=== PATIENT | female | born 1955 | race African-American/Black ===

== ENCOUNTER 2021-12-15 11:54 | Inpatient (IN) | payer OTHER ==
[~2021-12-15] VITALS: Ht 157.5 cm; Wt 64.6 kg
[2021-12-15] MEDS: IPRATROPIUM/ALBUTEROL 0.5-3(2.5)MG/3ML NEB HHN SCH (01:24)
[2021-12-15] MEDS ORDERED: IPRATROPIUM BROMIDE (0.02%) 0.5MG/2.5ML NEB HHN STA (12:04)
[2021-12-15] MEDS ORDERED: METHYLPREDNISOLONE SOD SUCC 125 MG/2 ML VIAL IV STA (12:04)
[2021-12-15] MEDS ORDERED: MAGNESIUM 2 G PREMIX 50 ML IV ONE (12:15)
[2021-12-15] MEDS: ALBUTEROL (0.083%) 2.5MG/3ML NEB HHN SCH ×3 (12:34→13:41)
[2021-12-15 12:38] LABS: HEMATOCRIT. 40.2 % (36.0-48.0); HEMOGLOBIN. 13.1 g/dL (12.0-16.0); MEAN CORPUSCULAR HEMOGLOBIN 30.5 pg (28.0-32.0); MEAN CORPUSCULAR VOLUME 93.6 fL (81.0-99.0); MEAN PLATELET VOLUME 8.2 fl (7.4-10.4); PLATELET 307 x1000/uL (130-400); RED BLOOD CELL COUNT 4.29 mill/uL (4.2-5.4); RED CELL DISTRIBUTION WIDTH 14.2 % (11.6-14.6)
[2021-12-15 12:48] LABS: CHLORIDE 111 mEq/L (98-107)
[2021-12-15 13:01] LABS: ETHANOL BLOOD < 10 mg/dL
[2021-12-15 13:09] LABS: PLATELET ESTIMATE NORMAL
[2021-12-15 13:14] LABS: BG BASE EXCESS -8.4 mmol/L (-2.0-2.0); BG CARBOXYHEMOGLOBIN 5.4 % (0.5-1.5); BG DEOXYHEMOGLOBIN 6.3 % (0.0-5.0); BG FRACTION INSPIRED OXYGEN 100; BG HCO3 ACT 18.1 mmol/L (22.0-26.0); BG METHEMOGLOBIN 0.3 % (0.0-1.5); BG OXYGEN SATURATION 93.3 % (92.0-98.5); BG PCO2 40.8 mmHg (35.0-45.0); BG PH 7.265 (7.350-7.450); BG PO2 72.1 mmHg (75.0-100.0); BG SAMPLE SITE RIGHT RADIAL; BG TOTAL HEMOGLOBIN 13.7 g/dL (12.0-18.0); BG TOTAL RESPIRATORY RATE 36 b/min; BG VENT MODE MASK - BIPAP
[2021-12-15 17:01] LABS: *AMPHETAMINES SCREEN URINE NEGATIVE (NEGATIVE); *BARBITURATES SCREEN URINE NEGATIVE (NEGATIVE); *BENZODIAZEPINES SCREEN URINE NEGATIVE (NEGATIVE); *COCAINE SCREEN URINE NEGATIVE (NEGATIVE); CANNABINOID URINE SCREEN NEGATIVE (NEGATIVE); METHADONE URINE SCREEN NEGATIVE (NEGATIVE); OPIATES URINE SCREEN PRESUMTIVE POSITIVE (NEGATIVE); PHENCYCLIDINE URINE SCREEN NEGATIVE (NEGATIVE)
[2021-12-15] MEDS ORDERED: IPRATROPIUM/ALBUTEROL 0.5-3(2.5)MG/3ML NEB HHN PRN (21:00)
[2021-12-15] MEDS ORDERED: ONDANSETRON HCL 4MG/2ML INJ IV PRN (21:00)
[2021-12-15] MEDS ORDERED: CLONIDINE 0.1MG TABLET PO PRN (21:00)
[2021-12-15] MEDS ORDERED: MAGNESIUM/ALUMINUM HYDROXIDE/SIMETHICONE 30ML UDC PO PRN (21:00)
[2021-12-15] MEDS ORDERED: ACETAMINOPHEN 325MG TABLET PO PRN (21:00)
[2021-12-15] MEDS ORDERED: DOCUSATE SODIUM 100MG CAPSULE PO PRN (21:00)
[2021-12-15] MEDS ORDERED: NALOXONE HCL 0.4MG/ML VIAL IV PRN (21:30)
[2021-12-15] MEDS: ACETAMINOPHEN 325MG TABLET PO PRN (21:36)
[2021-12-15] MEDS ORDERED: LEVOFLOXACIN 500MG PREMIX 100 ML IV NR (22:30)
[2021-12-16] VITALS (11 sets, daily range): BP systolic 100–153; BP diastolic 29–76
[2021-12-16 08:28] LABS: BG BASE EXCESS -4.8 mmol/L (-2.0-2.0); BG CARBOXYHEMOGLOBIN 1.3 % (0.5-1.5); BG DEOXYHEMOGLOBIN 5.9 % (0.0-5.0); BG FRACTION INSPIRED OXYGEN 100; BG HCO3 ACT 20.8 mmol/L (22.0-26.0); BG METHEMOGLOBIN 0.3 % (0.0-1.5); BG OXYHEMOGLOBIN 92.5 % (94.0-97.0); BG PCO2 40.6 mmHg (35.0-45.0); BG PH 7.328 (7.350-7.450); BG PO2 70.7 mmHg (75.0-100.0); BG SAMPLE SITE RIGHT RADIAL; BG TOTAL HEMOGLOBIN 13.7 g/dL (12.0-18.0); BG VENT MODE MASK - BIPAP
[2021-12-16] MEDS ORDERED: METHYLPREDNISOLONE SOD SUCC 125 MG/2 ML VIAL IV SCH (09:00)
[2021-12-16 09:27] LABS: CLARITY URINE CLOUDY (CLEAR); COLOR URINE DARK YELLOW (YELLOW); KETONES URINE TRACE (NEGATIVE); LEUKOCYTE ESTERASE URINE 2+ (NEGATIVE); NITRITE URINE NEGATIVE (NEGATIVE); OCCULT BLOOD URINE NEGATIVE (NEGATIVE); PH URINE 5.5 (4.5-8.0); PROTEIN URINE 1+ (NEGATIVE); SPECIFIC GRAVITY URINE 1.022 (1.005-1.030)
[2021-12-16] MEDS: IPRATROPIUM/ALBUTEROL 0.5-3(2.5)MG/3ML NEB HHN SCH ×3 (09:35→20:17)
[2021-12-16] MEDS: PANTOPRAZOLE SODIUM 40 MG/VIAL IV SCH (09:51)
[2021-12-16] MEDS: HYDROCODONE/ACETAMINOPHEN 5/325MG TABLET PO PRN (09:52)
[2021-12-16] MEDS: GUAIFENESIN 200MG/10ML SUGAR FREE UDC PO PRN (09:52)
[2021-12-16] MEDS: GUAIFENESIN 600MG ER TABLET PO SCH ×2 (09:52→19:59)
[2021-12-16] MEDS: ENOXAPARIN 40MG/0.4ML SYR SUBCUT SCH (09:53)
[2021-12-16 10:37] LABS: BG BASE EXCESS -4.7 mmol/L (-2.0-2.0); BG CARBOXYHEMOGLOBIN 1.6 % (0.5-1.5); BG DEOXYHEMOGLOBIN 6.8 % (0.0-5.0); BG FRACTION INSPIRED OXYGEN 100; BG HCO3 ACT 21.6 mmol/L (22.0-26.0); BG METHEMOGLOBIN 0.3 % (0.0-1.5); BG OXYGEN SATURATION 93.1 % (92.0-98.5); BG OXYHEMOGLOBIN 91.3 % (94.0-97.0); BG PCO2 44.2 mmHg (35.0-45.0); BG PH 7.306 (7.350-7.450); BG PO2 68.5 mmHg (75.0-100.0); BG SAMPLE SITE LEFT RADIAL; BG TOTAL HEMOGLOBIN 13.9 g/dL (12.0-18.0); BG VENT MODE MASK - BIPAP
[2021-12-16] MEDS: METHYLPREDNISOLONE SOD SUCC 125 MG/2 ML VIAL IV SCH ×3 (12:00→23:08)
[2021-12-16] MEDS: BUDESONIDE 0.5MG/2ML NEB HHN SCH ×2 (12:27→20:17)
[2021-12-16 12:30] LABS: HEMATOCRIT. 38.9 % (36.0-48.0); HEMOGLOBIN. 12.9 g/dL (12.0-16.0); MEAN CORPUSCULAR HEMOGLOBIN 30.8 pg (28.0-32.0); MEAN CORPUSCULAR VOLUME 92.6 fL (81.0-99.0); MEAN PLATELET VOLUME 8.3 fl (7.4-10.4); PLATELET 307 x1000/uL (130-400); RED CELL DISTRIBUTION WIDTH 14.3 % (11.6-14.6)
[2021-12-16 12:41] LABS: CHLORIDE 115 mEq/L (98-107)
[2021-12-16] MEDS: ALPRAZOLAM 0.5 MG TABLET PO PRN (12:47)
[2021-12-16 12:48] LABS: PHOSPHORUS 1.9 mg/dL (2.5-4.9)
[2021-12-16 17:50] LABS: NUCLEATED RED BLOOD CELLS 1 /100 WBC; PLATELET ESTIMATE NORMAL
[2021-12-16] MEDS: MORPHINE SULFATE 2 MG/ML CPJ (NOT FOR IM USE) IV PRN (19:44)
[2021-12-16] MEDS: LEVOFLOXACIN 250MG PREMIX 50 ML IV SCH (23:08)
[2021-12-17] VITALS (11 sets, daily range): BP systolic 126–174; BP diastolic 59–96
[2021-12-17] MEDS: IPRATROPIUM/ALBUTEROL 0.5-3(2.5)MG/3ML NEB HHN SCH ×4 (02:01→20:13)
[2021-12-17] MEDS: MORPHINE SULFATE 2 MG/ML CPJ (NOT FOR IM USE) IV PRN (02:04)
[2021-12-17] MEDS: METHYLPREDNISOLONE SOD SUCC 125 MG/2 ML VIAL IV SCH ×4 (05:09→23:15)
[2021-12-17] MEDS: GUAIFENESIN 600MG ER TABLET PO SCH ×2 (08:05→20:44)
[2021-12-17] MEDS: ALPRAZOLAM 0.5 MG TABLET PO PRN ×2 (08:05→20:44)
[2021-12-17] MEDS: ENOXAPARIN 40MG/0.4ML SYR SUBCUT SCH (08:05)
[2021-12-17] MEDS: PANTOPRAZOLE SODIUM 40 MG/VIAL IV SCH (08:05)
[2021-12-17 09:12] LABS: BG BASE EXCESS -1.3 mmol/L (-2.0-2.0); BG CARBOXYHEMOGLOBIN 1.3 % (0.5-1.5); BG DEOXYHEMOGLOBIN 4.7 % (0.0-5.0); BG FRACTION INSPIRED OXYGEN 100; BG HCO3 ACT 23.4 mmol/L (22.0-26.0); BG METHEMOGLOBIN 0.3 % (0.0-1.5); BG OXYGEN SATURATION 95.2 % (92.0-98.5); BG OXYHEMOGLOBIN 93.7 % (94.0-97.0); BG PCO2 39.5 mmHg (35.0-45.0); BG PH 7.391 (7.350-7.450); BG PO2 75.5 mmHg (75.0-100.0); BG TOTAL HEMOGLOBIN 13.4 g/dL (12.0-18.0); BG VENT MODE MASK - BIPAP
[2021-12-17] MEDS: BUDESONIDE 0.5MG/2ML NEB HHN SCH ×2 (09:12→20:13)
[2021-12-17] MEDS: HYDROCODONE/ACETAMINOPHEN 5/325MG TABLET PO PRN ×2 (09:56→20:43)
[2021-12-17] MEDS: LEVOFLOXACIN 250MG PREMIX 50 ML IV SCH (23:15)
[2021-12-18] VITALS (38 sets, daily range): BP systolic 89–211; BP diastolic 49–114
[2021-12-18] MEDS: IPRATROPIUM/ALBUTEROL 0.5-3(2.5)MG/3ML NEB HHN SCH ×3 (02:10→20:30)
[2021-12-18] MEDS: MORPHINE SULFATE 2 MG/ML CPJ (NOT FOR IM USE) IV PRN (02:18)
[2021-12-18] MEDS: METHYLPREDNISOLONE SOD SUCC 125 MG/2 ML VIAL IV SCH ×3 (05:12→18:49)
[2021-12-18] MEDS: HYDROCODONE/ACETAMINOPHEN 5/325MG TABLET PO PRN (05:12)
[2021-12-18] MEDS: ALPRAZOLAM 0.5 MG TABLET PO PRN (05:13)
[2021-12-18] MEDS: ENOXAPARIN 40MG/0.4ML SYR SUBCUT SCH (08:24)
[2021-12-18] MEDS: GUAIFENESIN 600MG ER TABLET PO SCH ×2 (08:24→21:30)
[2021-12-18] MEDS: PANTOPRAZOLE SODIUM 40 MG/VIAL IV SCH (08:24)
[2021-12-18] MEDS: BUDESONIDE 0.5MG/2ML NEB HHN SCH ×3 (08:46→20:30)
[2021-12-18 11:26] LABS: BG BASE EXCESS -0.7 mmol/L (-2.0-2.0); BG CARBOXYHEMOGLOBIN 1.4 % (0.5-1.5); BG DEOXYHEMOGLOBIN 7.5 % (0.0-5.0); BG FRACTION INSPIRED OXYGEN 70; BG HCO3 ACT 23.1 mmol/L (22.0-26.0); BG METHEMOGLOBIN 0.3 % (0.0-1.5); BG OXYGEN SATURATION 92.4 % (92.0-98.5); BG OXYHEMOGLOBIN 90.8 % (94.0-97.0); BG PCO2 35.7 mmHg (35.0-45.0); BG PH 7.429 (7.350-7.450); BG PO2 60.6 mmHg (75.0-100.0); BG SAMPLE SITE RIGHT RADIAL; BG TOTAL HEMOGLOBIN 14.2 g/dL (12.0-18.0); BG VENT MODE MASK - BIPAP
[2021-12-18 12:12] LABS: HEMATOCRIT 43.7 % (36.0-48.0); HEMOGLOBIN 14.1 g/dL (12.0-16.0); MEAN CORPUSCULAR HEMOGLOBIN 30.3 pg (28.0-32.0); MEAN CORPUSCULAR VOLUME 93.8 fL (81.0-99.0); PLATELET 314 x1000/uL (130-400); RED BLOOD CELL COUNT 4.66 mill/uL (4.2-5.4); RED CELL DISTRIBUTION WIDTH 14.2 % (11.6-14.6)
[2021-12-18 12:30] LABS: CHLORIDE 115 mEq/L (98-107)
[2021-12-18 13:58] LABS: BG CARBOXYHEMOGLOBIN 1.4 % (0.5-1.5); BG DEOXYHEMOGLOBIN 2.1 % (0.0-5.0); BG FRACTION INSPIRED OXYGEN 100; BG HCO3 ACT 26.6 mmol/L (22.0-26.0); BG METHEMOGLOBIN 0.1 % (0.0-1.5); BG OXYGEN SATURATION 97.9 % (92.0-98.5); BG OXYHEMOGLOBIN 96.4 % (94.0-97.0); BG PCO2 67.5 mmHg (35.0-45.0); BG PH 7.213 (7.350-7.450); BG PO2 116.9 mmHg (75.0-100.0); BG SAMPLE SITE RIGHT RADIAL; BG TOTAL HEMOGLOBIN 15.3 g/dL (12.0-18.0); BG VENT MODE VENT - AC
[2021-12-18] MEDS: PROPOFOL 10MG/ML 100ML 100 ML IV PRN (16:27)
[2021-12-18] MEDS: LEVOFLOXACIN 500MG PREMIX 100 ML IV SCH (18:48)
[2021-12-18] MEDS: GUAIFENESIN 200MG/10ML SUGAR FREE UDC PO PRN ×2 (21:28→21:30)
[2021-12-18] MEDS: FENTANYL 2500MCG/250ML PMX 250 ML IV NR (23:29)
[2021-12-19] VITALS (66 sets, daily range): BP systolic 106–144; BP diastolic 52–82
[2021-12-19] MEDS: PROPOFOL 10MG/ML 100ML 100 ML IV PRN ×4 (00:28→19:59)
[2021-12-19] MEDS: METHYLPREDNISOLONE SOD SUCC 125 MG/2 ML VIAL IV SCH ×4 (00:34→18:22)
[2021-12-19] MEDS: IPRATROPIUM/ALBUTEROL 0.5-3(2.5)MG/3ML NEB HHN SCH ×4 (01:17→20:24)
[2021-12-19] MEDS: BUDESONIDE 0.5MG/2ML NEB HHN SCH (07:45)
[2021-12-19 08:11] LABS: BG BASE EXCESS -1.6 mmol/L (-2.0-2.0); BG DEOXYHEMOGLOBIN 0.7 % (0.0-5.0); BG HCO3 ACT 23.9 mmol/L (22.0-26.0); BG METHEMOGLOBIN 0.3 % (0.0-1.5); BG OXYGEN SATURATION 99.3 % (92.0-98.5); BG PCO2 43.4 mmHg (35.0-45.0); BG PH 7.359 (7.350-7.450); BG PO2 185.4 mmHg (75.0-100.0); BG SAMPLE SITE RIGHT RADIAL; BG TOTAL HEMOGLOBIN 14.2 g/dL (12.0-18.0); BG VENT MODE VENT - AC
[2021-12-19] MEDS: GUAIFENESIN 600MG ER TABLET PO SCH ×2 (09:26→21:30)
[2021-12-19] MEDS: PANTOPRAZOLE SODIUM 40 MG/VIAL IV SCH (09:26)
[2021-12-19] MEDS: ENOXAPARIN 40MG/0.4ML SYR SUBCUT SCH (09:27)
[2021-12-19] MEDS: LEVOFLOXACIN 500MG PREMIX 100 ML IV SCH (17:56)
[2021-12-19] MEDS ORDERED: FENTANYL 2500MCG/250ML PMX 250 ML IV PRN (19:30)
[2021-12-19] MEDS: FENTANYL 2500MCG/250ML PMX 250 ML IV NR (19:50)
[2021-12-19] MEDS ORDERED: PROPOFOL 10MG/ML 100ML 100 ML IV PRN (20:00)
[2021-12-19] MEDS: GUAIFENESIN 200MG/10ML SUGAR FREE UDC PO PRN (21:39)
[2021-12-20] VITALS (89 sets, daily range): BP systolic 115–164; BP diastolic 58–97
[2021-12-20] MEDS: IPRATROPIUM/ALBUTEROL 0.5-3(2.5)MG/3ML NEB HHN SCH ×4 (01:28→19:59)
[2021-12-20] MEDS: METHYLPREDNISOLONE SOD SUCC 125 MG/2 ML VIAL IV SCH ×4 (06:32→17:14)
[2021-12-20] MEDS: PROPOFOL 10MG/ML 100ML 100 ML IV PRN (06:51)
[2021-12-20 07:58] LABS: BG BASE EXCESS 4.8 mmol/L (-2.0-2.0); BG FRACTION INSPIRED OXYGEN 50; BG HCO3 ACT 29.5 mmol/L (22.0-26.0); BG PCO2 43.7 mmHg (35.0-45.0); BG PH 7.447 (7.350-7.450); BG PO2 83.3 mmHg (75.0-100.0); BG SAMPLE SITE RIGHT RADIAL; BG VENT MODE VENT - AC
[2021-12-20] MEDS: ENOXAPARIN 40MG/0.4ML SYR SUBCUT SCH (09:20)
[2021-12-20] MEDS: PANTOPRAZOLE SODIUM 40 MG/VIAL IV SCH (09:20)
[2021-12-20] MEDS: GUAIFENESIN 600MG ER TABLET PO SCH ×2 (09:20→21:32)
[2021-12-20] MEDS ORDERED: DOPAMINE 800MG PREMIX (DOUBLE) 250 ML IV PRN (12:45)
[2021-12-20] MEDS ORDERED: MIDAZOLAM 100MG/100ML PMX 100 ML IV PRN (12:45)
[2021-12-20] MEDS ORDERED: MIDAZOLAM HCL 100 MG in SODIUM CHLORIDE 0.9% 100 ML IV PRN (13:00)
[2021-12-20] MEDS ORDERED: ATROPINE SULFATE 1MG/ML VIAL IV NR (13:30)
[2021-12-20] MEDS ORDERED: FENTANYL 2500MCG/250ML PMX 250 ML IV PRN (14:00)
[2021-12-20] MEDS: CHLORDIAZEPOXIDE 25MG CAPSULE PO SCH ×2 (14:32→22:09)
[2021-12-20 16:18] LABS: T4 FREE 1.32 ng/dL (0.76-1.46)
[2021-12-20] MEDS: LEVOFLOXACIN 500MG PREMIX 100 ML IV SCH (17:14)
[2021-12-21] VITALS (66 sets, daily range): BP systolic 110–150; BP diastolic 53–91
[2021-12-21] MEDS: METHYLPREDNISOLONE SOD SUCC 125 MG/2 ML VIAL IV SCH ×3 (00:40→13:22)
[2021-12-21] MEDS: IPRATROPIUM/ALBUTEROL 0.5-3(2.5)MG/3ML NEB HHN SCH ×4 (01:44→19:54)
[2021-12-21] MEDS: CHLORDIAZEPOXIDE 25MG CAPSULE PO SCH ×3 (06:31→21:40)
[2021-12-21 08:07] LABS: BG CARBOXYHEMOGLOBIN 0.6 % (0.5-1.5); BG DEOXYHEMOGLOBIN 5.6 % (0.0-5.0); BG FRACTION INSPIRED OXYGEN 40; BG HCO3 ACT 25.5 mmol/L (22.0-26.0); BG METHEMOGLOBIN 0.3 % (0.0-1.5); BG OXYGEN SATURATION 94.3 % (92.0-98.5); BG OXYHEMOGLOBIN 93.5 % (94.0-97.0); BG PCO2 36.4 mmHg (35.0-45.0); BG PH 7.464 (7.350-7.450); BG SAMPLE SITE RIGHT RADIAL; BG TOTAL HEMOGLOBIN 13.6 g/dL (12.0-18.0); BG VENT MODE VENT - AC
[2021-12-21] MEDS: ENOXAPARIN 40MG/0.4ML SYR SUBCUT SCH (09:01)
[2021-12-21] MEDS: GUAIFENESIN 600MG ER TABLET PO SCH ×2 (09:02→20:43)
[2021-12-21] MEDS: PANTOPRAZOLE SODIUM 40 MG/VIAL IV SCH (09:02)
[2021-12-21 12:54] LABS: HEMATOCRIT. 40.9 % (36.0-48.0); HEMOGLOBIN. 13.1 g/dL (12.0-16.0); MEAN CORPUSCULAR HEMOGLOBIN 30.4 pg (28.0-32.0); MEAN PLATELET VOLUME 8.3 fl (7.4-10.4); PLATELET 216 x1000/uL (130-400); RED CELL DISTRIBUTION WIDTH 14.2 % (11.6-14.6)
[2021-12-21 13:21] LABS: CHLORIDE 112 mEq/L (98-107)
[2021-12-21 13:28] LABS: PHOSPHORUS 2.9 mg/dL (2.5-4.9)
[2021-12-21 15:05] LABS: NUCLEATED RED BLOOD CELLS 1 /100 WBC; PLATELET ESTIMATE NORMAL
[2021-12-21] MEDS: SODIUM CHLORIDE 0.45% 1,000 ML IV SCH (17:49)
[2021-12-21] MEDS: METHYLPREDNISOLONE SOD SUCC 40 MG/ML VIAL IV SCH (17:49)
[2021-12-22] VITALS (82 sets, daily range): BP systolic 100–147; BP diastolic 49–85
[2021-12-22] MEDS: IPRATROPIUM/ALBUTEROL 0.5-3(2.5)MG/3ML NEB HHN SCH ×4 (01:55→20:27)
[2021-12-22] MEDS: CHLORDIAZEPOXIDE 25MG CAPSULE PO SCH ×3 (07:04→21:12)
[2021-12-22] MEDS: METHYLPREDNISOLONE SOD SUCC 40 MG/ML VIAL IV SCH ×2 (07:04→18:25)
[2021-12-22] MEDS: PANTOPRAZOLE SODIUM 40 MG/VIAL IV SCH (08:27)
[2021-12-22] MEDS: ENOXAPARIN 40MG/0.4ML SYR SUBCUT SCH (08:28)
[2021-12-22 08:37] LABS: BG BASE EXCESS 0.6 mmol/L (-2.0-2.0); BG CARBOXYHEMOGLOBIN 0.4 % (0.5-1.5); BG DEOXYHEMOGLOBIN 5.5 % (0.0-5.0); BG FRACTION INSPIRED OXYGEN 40; BG METHEMOGLOBIN 0.7 % (0.0-1.5); BG OXYGEN SATURATION 94.4 % (92.0-98.5); BG OXYHEMOGLOBIN 93.4 % (94.0-97.0); BG PCO2 39.3 mmHg (35.0-45.0); BG PH 7.421 (7.350-7.450); BG PO2 72.4 mmHg (75.0-100.0); BG SAMPLE SITE RIGHT RADIAL; BG TOTAL HEMOGLOBIN 13.8 g/dL (12.0-18.0); BG VENT MODE VENT - AC
[2021-12-22] MEDS: GUAIFENESIN 600MG ER TABLET PO SCH ×2 (09:00→21:12)
[2021-12-22 12:53] LABS: BG BASE EXCESS 2.9 mmol/L (-2.0-2.0); BG CARBOXYHEMOGLOBIN 1.4 % (0.5-1.5); BG DEOXYHEMOGLOBIN 5.3 % (0.0-5.0); BG FRACTION INSPIRED OXYGEN 40; BG HCO3 ACT 27.9 mmol/L (22.0-26.0); BG METHEMOGLOBIN 0.3 % (0.0-1.5); BG OXYGEN SATURATION 94.6 % (92.0-98.5); BG PCO2 44.1 mmHg (35.0-45.0); BG PH 7.419 (7.350-7.450); BG PO2 74.1 mmHg (75.0-100.0); BG SAMPLE SITE RIGHT RADIAL; BG TOTAL HEMOGLOBIN 13.6 g/dL (12.0-18.0); BG VENT MODE VENT - CPAP
[2021-12-22] MEDS: SODIUM CHLORIDE 0.45% 1,000 ML IV SCH (13:24)
[2021-12-22] MEDS: ACETAMINOPHEN 325MG TABLET PO PRN (21:12)
[2021-12-23] VITALS (43 sets, daily range): BP systolic 109–151; BP diastolic 52–76
[2021-12-23] MEDS: IPRATROPIUM/ALBUTEROL 0.5-3(2.5)MG/3ML NEB HHN SCH ×4 (02:24→21:05)
[2021-12-23] MEDS: METHYLPREDNISOLONE SOD SUCC 40 MG/ML VIAL IV SCH ×2 (05:05→18:25)
[2021-12-23] MEDS: CHLORDIAZEPOXIDE 25MG CAPSULE PO SCH ×3 (05:06→21:17)
[2021-12-23] MEDS: GUAIFENESIN 600MG ER TABLET PO SCH ×2 (08:43→21:17)
[2021-12-23] MEDS: PANTOPRAZOLE SODIUM 40 MG/VIAL IV SCH (08:43)
[2021-12-23] MEDS: SODIUM CHLORIDE 0.45% 1,000 ML IV SCH (08:43)
[2021-12-23] MEDS: ENOXAPARIN 40MG/0.4ML SYR SUBCUT SCH (08:43)
[2021-12-24] VITALS: BP 141/70
[2021-12-24 00:30] VITALS: BP 137/63
[2021-12-24 01:00] VITALS: BP 131/72
[2021-12-24 01:30] VITALS: BP 125/66
== END 2021-12-24 02:00 | disposition short-term general hospital (02) | DRG 870 ==
LOC: ER 11:54 → MICUSO 18:17 → SUPCPDRO 19:34 → EDBEDREQSVC 21:27 → EDBEDREQTM 21:27 → 5EST 12-16 05:55 → CVICU 12-18 13:06
PROVIDERS: ADMIT Internal Medicine; ATTEND Internal Medicine
PROC: 5A09457 Assistance with Respiratory Ventilation, 24-96 Consecutive Hours, Continuous Positive Airway Pressure (ICD-10-PCS; 2021-12-15)
PROC: 0BH17EZ Insertion of Endotracheal Airway into Trachea, Via Natural or Artificial Opening (ICD-10-PCS; principal; 2021-12-18)
PROC: 5A1955Z Respiratory Ventilation, Greater than 96 Consecutive Hours (ICD-10-PCS; 2021-12-18)
PROC: 02HV33Z Insertion of Infusion Device into Superior Vena Cava, Percutaneous Approach (ICD-10-PCS; 2021-12-18)
PROC: B548ZZA Ultrasonography of Superior Vena Cava, Guidance (ICD-10-PCS; 2021-12-18)
PROC: 05HY33Z Insertion of Infusion Device into Upper Vein, Percutaneous Approach (ICD-10-PCS; 2021-12-21)
PROC: B54MZZA Ultrasonography of Right Upper Extremity Veins, Guidance (ICD-10-PCS; 2021-12-21)
DX: A41.9 Sepsis, unspecified organism (principal); J18.9 Pneumonia, unspecified organism; J96.01 Acute respiratory failure with hypoxia; J44.1 Chronic obstructive pulmonary disease with (acute) exacerbation; I45.2 Bifascicular block; E44.1 Mild protein-calorie malnutrition; E87.20 Acidosis, unspecified; G93.40 Encephalopathy, unspecified; J44.0 Chronic obstructive pulmonary disease with (acute) lower respiratory infection; I50.40 Unspecified combined systolic (congestive) and diastolic (congestive) heart failure; E83.42 Hypomagnesemia; Z96.642 Presence of left artificial hip joint; E83.51 Hypocalcemia; E83.39 Other disorders of phosphorus metabolism; R00.1 Bradycardia, unspecified; F41.9 Anxiety disorder, unspecified; E78.5 Hyperlipidemia, unspecified; F17.210 Nicotine dependence, cigarettes, uncomplicated; I11.0 Hypertensive heart disease with heart failure; Z20.822 Contact with and (suspected) exposure to COVID-19; K21.9 Gastro-esophageal reflux disease without esophagitis; Z83.3 Family history of diabetes mellitus; Z68.26 Body mass index [BMI] 26.0-26.9, adult; Z88.1 Allergy status to other antibiotic agents
CPT/HCPCS: 31500; 36415; 36573; 36600; 71045; 78580; 80048; 80053; 80305; 80320; 81003; 82375; 82805; 82962; 83036; 83735; 83880; 84100; 84145; 84439; 84443; 84478; 84484; 85025; 85027; 85379; 87070; 87426; 87804; 93005; 93306; 93970; 94002; 94003; 94640; 94660; 99291; C1725; C9113; C9803; J0461; J1650; J1956; J2270; J2704; J2920; J2930; J3010; J3475; J7626; G0480